=== PATIENT | male | born 1960 | race Caucasian/White ===

== ENCOUNTER → 2025-04-18 | Outpatient (CLI) | payer MEDICARE, OTHER | LOC: M ONCR 14:05 | PROVIDERS: ATTEND General Practice | DX: C61 Malignant neoplasm of prostate (principal); R97.20 Elevated prostate specific antigen [PSA] ==

== ENCOUNTER → 2025-04-26 | Outpatient (CLI) | payer MEDICARE, OTHER ==
[~2025-04-26] VITALS: Ht 167.6 cm; Wt 84.3 kg
[~2025-04-26] MED LIST: CIPR750T2 PO; LORA1TAB23 PO
[2025-04-26 14:23] VITALS: BP 125/82; TEMP 97.2; O2SAT 98
[2025-04-26 15:34] VITALS: BP 128/92; TEMP 97.7; O2SAT 99
[2025-04-26] MEDS: LIDOCAINE VISCOUS 2% SOLN 15 ML UDC XX ONE (15:43)
[2025-04-26] MEDS: LIDOCAINE 2% MDV 20 ML VIAL XX ONE (15:48)
== END ==
LOC: M ONCR 14:42
PROVIDERS: ATTEND General Practice
DX: C61 Malignant neoplasm of prostate (principal)
CPT/HCPCS: 55874; 55876; A4648; C1889